=== PATIENT | male | born 1990 | race Caucasian/White ===

== ENCOUNTER 2018-06-25 09:10 | Day surgery (SDC) | payer MEDICAID ==
[~2018-06-25] VITALS: Ht 190.5 cm; Wt 90.7 kg
[2018-06-25] MEDS ORDERED: ONDANSETRON HCL 4 MG/2 ML VIAL IVP PRN (09:30)
[2018-06-25] MEDS ORDERED: fentaNYL CITRATE/PF 100 MCG/2 ML AMP IVP PRN ×2 (09:30)
[2018-06-25] MEDS ORDERED: LIDOCAINE/EPI 1% 1:100000 20 ML VIAL INJ ONE (09:56)
[2018-06-25] MEDS ORDERED: MUPIROCIN 2% TOPICAL OINTMENT 22 GM TP ONE (09:56)
[2018-06-25] MEDS ORDERED: SEVOFLURANE 15 MIN GAS INH ONE (09:56)
[2018-06-25] MEDS ORDERED: ONDANSETRON HCL 4 MG/2 ML VIAL IVP ONE (09:56)
[2018-06-25] MEDS ORDERED: OXYMETAZOLINE HCL 0.05% NASAL SPRAY NS ONE (09:56)
[2018-06-25] MEDS ORDERED: EPINEPHrine 1 MG/ML AMP IV ONE (09:56)
[2018-06-25] MEDS ORDERED: MIDAZOLAM HCL 5 MG/5 ML VIAL IVP ONE (09:56)
[2018-06-25] MEDS ORDERED: NS IRRIG SOLN 1000 ML IR ONE (09:56)
[2018-06-25] MEDS ORDERED: NEOSTIGMINE METHYLSULFATE 1 MG/ML, 10 ML VIAL IVP ONE (09:56)
[2018-06-25] MEDS ORDERED: DEXAMETHASONE SOD PHOSPHATE 4 MG/ML VIAL IVP ONE (09:56)
[2018-06-25] MEDS ORDERED: fentaNYL CITRATE/PF 100 MCG/2 ML AMP IVP ONE (09:56)
[2018-06-25] MEDS ORDERED: NS 500 ML IV.SOLN IV ONE (09:56)
[2018-06-25] MEDS ORDERED: ROCURONIUM BROMIDE 10 MG/ML (ZEMURON) IV ONE (09:56)
[2018-06-25] MEDS ORDERED: GLYCOPYRROLATE 0.2 MG/ML VIAL IJ ONE (09:56)
[2018-06-25] MEDS ORDERED: LR 1,000 ML IV.SOLN IV ONE (09:56)
[2018-06-25] MEDS ORDERED: PROPOFOL 200MG/ 20ML VIAL (DIPRIVAN) IV ONE (09:56)
[2018-06-25] MEDS ORDERED: ONDANSETRON HCL 4 MG/2 ML VIAL ONE (13:38)
[2018-06-25] MEDS ORDERED: fentaNYL CITRATE/PF 100 MCG/2 ML AMP ONE (13:54)
[2018-06-25 15:44] VITALS: BP_SYST 128
== END 2018-06-25 15:45 | disposition home or self-care (01) ==
LOC: SDS 09:10 → SMU 09:11 → SDS 15:45
PROVIDERS: ATTEND Otolaryngology
DX: J34.2 Deviated nasal septum (principal); J32.9 Chronic sinusitis, unspecified; J34.89 Other specified disorders of nose and nasal sinuses; J33.9 Nasal polyp, unspecified; R43.0 Anosmia
CPT/HCPCS: 30140; 30520; 31255; 31267; 31298; 87070 ×2; 87075; 87101; 88305; 88311; C1726; J0171; J1100; J2250; J2405; J2704; J2710; J3010; J3490; J7040; J7120